=== PATIENT | male | born 1945 | race Caucasian/White ===

== ENCOUNTER → 2019-07-06 | Outpatient (CLI) | payer OTHER | LOC: SJCVCIMAG 12:21 | DX: I65.23 Occlusion and stenosis of bilateral carotid arteries (principal); R09.89 Other specified symptoms and signs involving the circulatory and respiratory systems ==

== ENCOUNTER → 2021-03-06 | Outpatient (CLI) | payer OTHER | LOC: SJCVCIMAG 08:22 | PROVIDERS: ATTEND Internal Medicine Cardiovascular Disease | DX: I25.10 Atherosclerotic heart disease of native coronary artery without angina pectoris (principal); I48.91 Unspecified atrial fibrillation; Z98.61 Coronary angioplasty status; J44.9 Chronic obstructive pulmonary disease, unspecified ==